=== PATIENT | female | born 1965 | race American Indian/Alaskan Native ===

== ENCOUNTER 2019-03-07 18:07 | Emergency (ER) | payer MEDICAID, OTHER ==
--- NOTE | 2019-03-07 18:53 | EDM.PDOC ---
ED HPI GENERAL MEDICAL PROBLEM - General Chief Complaint: Abdominal Pain Stated Complaint: Upper abdominal pain x one month Time Seen by Provider: 03/07/19 18:43 Source of Information: Reports: Patient, EMS History Limitations: Reports: Other (Pain distraction.) - History of Present Illness INITIAL COMMENTS - FREE TEXT/NARRATIVE: Persistent but intermittent upper abdominal pain for about one month. Pain is LUQ and epigastric in location. Pain is sharp but also burning. Was seen at [facility] and started on ranitidine. It doesn't seem to have helped much. Some nausea, has never vomited. No diarrhea, some constipation. Was recently seen because of return of menstrual period by OB-PATCHER WOOD WELDER at [place] in [place]. Uterine biopsy done but results pending. It was felt that she had a right ovarian cyst but no other PATCHER WOOD WELDER abnormality. She had severe pain today and states she passed out. She was brought be ambulance. Onset: Today Onset Date: 02/10/19 Onset Time: 07:00 Duration: Week(s): (Four), Waxing/Waning Location: Reports: Abdomen Quality: Reports: Burning, Stabbing Severity: Moderate Improves with: Reports: None Worsens with: Reports: Movement Associated Symptoms: Reports: Nausea/Vomiting - Related Data Allergies Allergy/AdvReac Type Severity Reaction Status Date / Time metformin Allergy Cannot Verified 03/07/19 18:57 Remember pregabalin [From Lyrica] Allergy Swelling Verified 03/07/19 18:57 Home Meds: Home Meds Insulin Aspart [NovoLOG] 20 unit SQ WITHMEALSANDBED 03/07/19 [History] Insulin Detemir [Levemir] 25 unit SUBCUT BID 03/07/19 [History] Levothyroxine [Synthroid] 50 mcg PO ACBREAKFAST 03/07/19 [History] ED ROS GENERAL - Review of Systems Review Of Systems: See Below Constitutional: Reports: No Symptoms HEENT: Reports: Other (Dry mouth) Respiratory: Reports: No Symptoms Cardiovascular: Reports: No Symptoms Endocrine: Reports: No Symptoms GI/Abdominal: Reports: Abdominal Pain Psychiatric: Reports: Anxiety ED EXAM, GI/ABD - Physical Exam Exam: See Below Exam Limited By: Other (Pain) General Appearance: Moderate Distress Respiratory/Chest: No Respiratory Distress GI/Abdominal Exam: Normal Bowel Sounds, Soft, No Mass, Tender (LUQ and epigastric tenderness.) Extremities: Normal Inspection Skin Exam: Warm Course - Vital Signs Last Recorded V/S: Last Vital Signs Temp 35.8 C 03/07/19 18:59 Pulse 68 03/07/19 22:31 Resp 18 03/07/19 22:31 BP 146/59 H 03/07/19 22:31 Pulse Ox 97 03/07/19 22:31 - Orders/Labs/Meds Orders: Active Orders 24 hr Category Date Time Status Saline Lock Insert [OM.PC] Routine Oth 03/07/19 18:57 Ordered Labs: Laboratory Tests 03/07/19 03/07/19 03/07/19 Range/Units 19:00 19:00 19:00 WBC 9.2 (4.5-11.0) K/uL RBC 4.62 (3.30-5.50) M/uL Hgb 14.0 (12.0-15.0) g/dL Hct 41.9 (36.0-48.0) % MCV 91 (80-98) fL MCH 30 (27-31) pg MCHC 33 (32-36) % Plt Count 254 (150-400) K/uL Neut % (Auto) 74 H (36-66) % Lymph % (Auto) 20 L (24-44) % Hamblen % (Auto) 5 (2-6) % Eos % (Auto) 1 L (2-4) % Baso % (Auto) 0 (0-1) % Sodium 140 (140-148) mmol/L Potassium 3.7 (3.6-5.2) mmol/L Chloride 104 (100-108) mmol/L Carbon Dioxide 26 (21-32) mmol/L Anion Gap 9.7 (5.0-14.0) mmol/L BUN 10 (7-18) mg/dL Creatinine 0.7 (0.6-1.0) mg/dL Est Cr Clr Drug Dosing 78.41 mL/min Estimated GFR (MDRD) > 60 (>60) Glucose 207 H (74-106) mg/dL Calcium 8.9 (8.5-10.1) mg/dL Total Bilirubin 0.7 (0.2-1.0) mg/dL AST 61 H (15-37) U/L ALT 84 H (12-78) U/L Alkaline Phosphatase 71 (46-116) U/L C-Reactive Protein (0.0-0.3) mg/dL Total Protein 7.5 (6.4-8.2) g/dL Albumin 3.3 L (3.4-5.0) g/dL Globulin 4.2 H (2.3-3.5) g/dL Albumin/Globulin Ratio 0.8 L (1.2-2.2) Lipase 137 (73-393) U/L 03/07/19 Range/Units 19:00 WBC (4.5-11.0) K/uL RBC (3.30-5.50) M/uL Hgb (12.0-15.0) g/dL Hct (36.0-48.0) % MCV (80-98) fL MCH (27-31) pg MCHC (32-36) % Plt Count (150-400) K/uL Neut % (Auto) (36-66) % Lymph % (Auto) (24-44) % Hamblen % (Auto) (2-6) % Eos % (Auto) (2-4) % Baso % (Auto) (0-1) % Sodium (140-148) mmol/L Potassium (3.6-5.2) mmol/L Chloride (100-108) mmol/L Carbon Dioxide (21-32) mmol/L Anion Gap (5.0-14.0) mmol/L BUN (7-18) mg/dL Creatinine (0.6-1.0) mg/dL Est Cr Clr Drug Dosing mL/min Estimated GFR (MDRD) (>60) Glucose (74-106) mg/dL Calcium (8.5-10.1) mg/dL Total Bilirubin (0.2-1.0) mg/dL AST (15-37) U/L ALT (12-78) U/L Alkaline Phosphatase (46-116) U/L C-Reactive Protein 0.63 H (0.0-0.3) mg/dL Total Protein (6.4-8.2) g/dL Albumin (3.4-5.0) g/dL Globulin (2.3-3.5) g/dL Albumin/Globulin Ratio (1.2-2.2) Lipase (73-393) U/L Meds: Medications Discontinued Medications Generic Name Dose Route Start Last Admin Trade Name Freq PRN Reason Stop Dose Admin Al Hydroxide/Mg Hydroxide 90 ml 03/07/19 22:28 03/07/19 22:38 Mag-Al Plus PO 03/07/19 22:29 90 ml ONETIME ONE Administration Al Hydroxide/Mg Hydroxide 15 0 ml 03/07/19 21:25 03/07/19 21:43 ml/ Lidocaine HCl 15 ml PO 03/07/19 21:26 15 ml ONETIME ONE Administration Hydromorphone HCl 1 mg 03/07/19 21:24 03/07/19 21:43 Dilaudid IVPUSH 03/07/19 21:25 1 mg ONETIME ONE Administration Lactated Ringer's 1,000 mls @ 150 mls/hr 03/07/19 19:00 03/07/19 19:16 Ringers, Lactated IV 150 mls/hr ASDIRECTED VITALY Administration Sodium Chloride 80 mls @ 3.5 mls/sec 03/07/19 19:04 03/07/19 20:13 Normal Saline IV 03/07/19 19:05 3.5 mls/sec ONETIME ONE Administration Iopamidol 150 ml 03/07/19 19:15 03/07/19 20:13 Isovue-300 (61%) IV 03/07/19 19:16 147 ml ONETIME ONE Administration Ketorolac Tromethamine 30 mg 03/07/19 18:59 03/07/19 19:17 Toradol IVPUSH 03/07/19 19:00 30 mg ONETIME ONE Administration Ondansetron HCl 4 mg 03/07/19 18:59 03/07/19 19:17 Zofran IVPUSH 03/07/19 19:00 4 mg ONETIME ONE Administration Sodium Chloride 10 ml 03/07/19 18:57 03/07/19 19:21 Saline Flush FLUSH 10 ml ASDIRECTED PRN Administration Keep Vein Open Sodium Chloride 10 ml 03/07/19 19:04 03/07/19 20:13 Saline Flush FLUSH 03/07/19 19:05 10 ml ONETIME ONE Administration - Re-Assessments/Exams Free Text/Narrative Re-Assessment/Exam: 03/07/19 21:15 Patient somewhat more comfortable after Toradol. She is thirsty. Labs looking good so far. Will await CT results. 03/07/19 21:26 Will give GI cocktail and hydromorphone 1 mg IV. Nursing staff reports that there is a family member who committed suicide almost exactly one year ago and that has been stressful for her. 03/07/19 23:38 Returned to review all findings. Told her that no acute changes were seen in imaging or labs. Discussed in detail that her stressors could be the reason she' s had the abdominal pain. To have symptoms for one month but not have abnormal testing suggests stress-related cause. She is taking ranitidine once a day but doesn't know the dose. I recommend using it twice a day and getting liquid antacid to help with flares of pain. She should schedule a clinic recheck appointment. If not improved she may need UGI endoscopy. She seems somewhat reassured. Departure - Departure Time of Disposition: 22:29 Disposition: Home, Self-Care 01 Condition: Fair Clinical Impression: Abdominal pain - Discharge Information *PRESCRIPTION DRUG MONITORING PROGRAM REVIEWED*: Not Applicable *COPY OF PRESCRIPTION DRUG MONITORING REPORT IN PATIENT MARITZA: Not Applicable Instructions: Abdominal Pain, Adult Referrals: PCP,None [Primary Care Provider] - Forms: ED Department Discharge Additional Instructions: Check your ranitidine tablets at home. I recommend taking 150 mg twice a day. Use Maalox liquid antacid, at least 2 tablespoons at a time. Schedule recheck appointment with [facility]. If your stomach pain doesn't improve with the changes recommended, you may need to have a stomach scope exam. Care Plan Goals: Se discharge instructions. - Problem List & Annotations (1) Gastritis SNOMED Code(s): 9752352 Code(s): K29.70 - GASTRITIS, UNSPECIFIED, WITHOUT BLEEDING Status: Acute Priority: High Qualifiers: Gastritis type: other gastritis - Problem List Review Problem List Initiated/Reviewed/Updated: Yes - My Orders Last 24 Hours: My Active Orders 03/07/19 18:57 Saline Lock Insert [OM.PC] Routine - Assessment/Plan Last 24 Hours: My Active Orders 03/07/19 18:57 Saline Lock Insert [OM.PC] Routine Assessment:: Gastritis. Significant life stress. Plan: See discharge instructions.
[2019-03-07] MEDS ORDERED: Sodium Chloride 0.9% 10 ML Syringe FLUSH PRN (18:57)
[2019-03-07] MEDS ORDERED: Ketorolac 30 MG/ML SDV IVPUSH ONE (18:59)
[2019-03-07] MEDS ORDERED: Ondansetron 4 MG/2 ML SDV IVPUSH ONE (18:59)
[2019-03-07] MEDS ORDERED: Lactated Ringers 1,000 ML IV SCH (19:00)
[2019-03-07] MEDS ORDERED: Sodium Chloride 0.9% 80 ML IV ONE (19:04)
[2019-03-07] MEDS ORDERED: Iopamidol 612 MG/ML 150 ML Bottle IV ONE (19:15)
[2019-03-07] MEDS: Sodium Chloride 0.9% 10 ML Syringe FLUSH ONE ×2 (19:21→20:13)
[2019-03-07] MEDS ORDERED: HYDROmorphone 1 MG/ML Syringe IVPUSH ONE (21:24)
[2019-03-07] MEDS ORDERED: Alum Hydrox/Mag Hydrox/Simeth 15 ML, Lidocaine 2% 15 ML PO ONE ×2 (21:25)
--- NOTE | 2019-03-07 21:25 | CRLCT ---
INDICATION: Upper abdominal pain. TECHNIQUE: CT scan of the abdomen and pelvis with 100 cc of Isovue-300 given intravenously. FINDINGS: The lung bases are unremarkable. No focal abnormalities identified in the visualized portions of the liver, spleen, pancreas, and adrenal glands. A few small cysts in the kidneys. The kidneys are otherwise unremarkable. No hydronephrosis. No obstructing uroliths. The GI tract is incompletely distended but shows no gross abnormalities. The stomach and GE junction are not well assessed. Normal appendix. No retroperitoneal, pelvic sidewall, or mesenteric adenopathy. Atherosclerotic vascular calcifications. IMPRESSION: 1. No acute abnormalities of the abdomen or pelvis identified. Dictated by Cuco Raymond MD @ 03/07/2019 9:24:25 PM Dictated by: Cuco Raymond MD @ 03/07/2019 21:24:45 (Electronically Signed)
[2019-03-07] MEDS ORDERED: Aluminum Hydroxide/Magnesium Hydroxide/Simethicone Susp 30 ML Cup PO ONE (22:28)
== END 2019-03-07 22:47 | disposition home or self-care (01) ==
LOC: JP.ED 18:07
DX: K29.70 Gastritis, unspecified, without bleeding (principal); Z88.8 Allergy status to other drugs, medicaments and biological substances; Z79.4 Long term (current) use of insulin
CPT/HCPCS: 36415; 74177; 80053; 83690; 85025; 86140; 96361; 96374; 96375; 99284; A9270; J1170; J1885; J2405; J7030; J7120

== ENCOUNTER 2021-05-16 12:22 | Emergency (ER) | payer MEDICAID ==
[2021-05-16] MEDS ORDERED: Penicillin G Benzathine/Procaine 600-600 1.2 Millunits/2 ML Syringe IM ONE (14:10)
--- NOTE | 2021-05-16 14:17 | EDM.PDOC ---
ED HPI GENERAL MEDICAL PROBLEM - General Chief Complaint: General Stated Complaint: MEDICAL VIA [facility] Time Seen by Provider: 05/16/21 13:20 Source of Information: Reports: Patient, EMS History Limitations: Reports: No Limitations - History of Present Illness INITIAL COMMENTS - FREE TEXT/NARRATIVE: 56-year-old female brought in by ambulance with significant sore throat, myalgias, weakness and headache. It started with a sore throat 3 days ago. She has been spiking fevers off-and-on, no shortness of breath or significant cough. The small amount of cough she does have hurts her throat. Onset: Gradual Duration: Day(s): (3 days) Location: Reports: Other (Mostly throat pain, also headache and generalized myalgias) - Related Data Allergies Allergy/AdvReac Type Severity Reaction Status Date / Time metformin Allergy Cannot Verified 05/16/21 13:05 Remember pregabalin [From Lyrica] Allergy Swelling Verified 05/16/21 13:05 Home Meds: Home Meds Insulin Aspart [NovoLOG] 20 unit SQ WITHMEALSANDBED 03/07/19 [History] Insulin Detemir [Levemir] 25 unit SUBCUT BID 03/07/19 [History] Levothyroxine [Synthroid] 50 mcg PO ACBREAKFAST 03/07/19 [History] Past Medical History HEENT History: Reports: Impaired Vision Cardiovascular History: Reports: Heart Murmur Gastrointestinal History: Reports: Colon Polyp Genitourinary History: Reports: UTI, Recurrent EXCEL ANALYST History: Reports: Dysfunctional Uterine Bleeding, , Other (See Below) Other EXCEL ANALYST History: cyst on left ovarie Musculoskeletal History: Reports: Arthritis, Fibromyalgia Neurological History: Reports: Migraines Psychiatric History: Reports: Anxiety, Depression, Panic Attack, PTSD, Suicidal Ideation Endocrine/Metabolic History: Reports: Diabetes, Type II, Hypothyroidism, Obesity/BMI 30+ Hematologic History: Reports: Anemia - Infectious Disease History Infectious Disease History: Reports: Chicken Pox, Shingles - Past Surgical History Head Surgeries/Procedures: Reports: None HEENT Surgical History: Reports: None Cardiovascular Surgical History: Reports: None GI Surgical History: Reports: Colonoscopy, Polypectomy Female Surgical History: Reports: None Endocrine Surgical History: Reports: None Neurological Surgical History: Reports: None Musculoskeletal Surgical History: Reports: None Dermatological Surgical History: Reports: None Social & Family History - Tobacco Use Tobacco Use Status *Q: Current Some Day Tobacco User Years of Tobacco use: 40 Packs/Tins Daily: 0.1 Used Tobacco, but Quit: No Second Hand Smoke Exposure: No - Caffeine Use Caffeine Use: Reports: Coffee - Recreational Drug Use Recreational Drug Use: No ED ROS GENERAL - Review of Systems Review Of Systems: See Below Constitutional: Reports: Fever, Chills, Malaise, Decreased Appetite HEENT: Reports: Throat Pain Respiratory: Reports: Cough (Cough is minimal, dry). Denies: Shortness of Breath Cardiovascular: Denies: Chest Pain GI/Abdominal: Reports: Nausea. Denies: Abdominal Pain, Vomiting Musculoskeletal: Reports: Muscle Pain (Generalized muscle aches everywhere) Skin: Denies: Rash Neurological: Reports: Headache Psychiatric: Reports: No Symptoms ED EXAM, GENERAL - Physical Exam Exam: See Below Exam Limited By: No Limitations General Appearance: Alert, No Apparent Distress (Looks very uncomfortable but not distressed) Eye Exam: Bilateral Eye: Normal Inspection (Normal hydration, cried tears with the strep test) Ears: Normal TMs Throat/Mouth: Other (Mucosal hydration is excellent, tonsils however are erythematous and swollen, not shifted) Head: Atraumatic Neck: Lymphadenopathy (R) (Cervical lymphadenopathy is very tender), Lymphadenopathy (L) Cardiovascular: Regular Rate, Rhythm. No: Tachycardia GI/Abdominal: Soft, Non-Tender Neurological: Alert, Oriented Psychiatric: Depressed Mood, Flat Affect Skin Exam: Warm, Dry Course - Vital Signs Last Recorded V/S: Last Vital Signs Temp 98.1 F 05/16/21 13:06 Pulse 88 05/16/21 14:36 Resp 18 05/16/21 13:06 BP 157/77 H 05/16/21 14:36 Pulse Ox 96 05/16/21 14:36 - Orders/Labs/Meds Meds: Medications Discontinued Medications Generic Name Dose Route Start Last Admin Trade Name Freq PRN Reason Stop Dose Admin Penicillin G Procaine/Benzathine 1.2 millunits 05/16/21 14:45 05/16/21 14:42 Penicillin G Benzathine/Procaine 900-300 1.2 Millunits/2 Ml Syringe IM 05/16/21 14:46 1.2 millunits ONETIME ONE Administration - Re-Assessments/Exams Free Text/Narrative Re-Assessment/Exam: 05/16/21 17:33 Rapid strep was obtained which was positive. Patient was given a Bicillin injection of penicillin, and will start on oral penicillin tomorrow three times daily for at least 7 days. She will stay hydrated with fluids and take ibuprofen for discomfort. A note was given for 2 to 3 days off work. She will return if worsening despite treatment. Departure - Departure Time of Disposition: 14:39 Disposition: Home, Self-Care 01 Clinical Impression: Acute streptococcal pharyngitis - Discharge Information Instructions: Strep Throat, Adult, [id number] Referrals: PCP,None [Primary Care Provider] - Forms: ED Department Discharge Care Plan Goals: Start penicillin 3 times a day tomorrow, rest tonight and get plenty of fluids and use Tylenol and ibuprofen on a regular basis for pain control. If not improving satisfactorily over the next several days, recheck. Also consider recheck if vomiting medication. Sepsis Event Note (ED) - Evaluation Sepsis Screening Result: No Definite Risk - Focused Exam Vital Signs: Vital Signs Temp Pulse Resp BP Pulse Ox 05/16/21 14:36 88 157/77 H 96 05/16/21 14:26 140/62 05/16/21 13:56 84 160/62 H 95 05/16/21 13:26 87 162/80 H 95 05/16/21 13:06 98.1 F 88 18 152/75 H 95 05/16/21 13:01 98.1 F 88 152/75 H 95
[2021-05-16] MEDS ORDERED: Penicillin G Benzathine/Procaine 900-300 1.2 Millunits/2 ML Syringe IM ONE (14:45)
== END 2021-05-16 14:49 | disposition home or self-care (01) ==
LOC: JP.ED 12:22
DX: J02.0 Streptococcal pharyngitis (principal); E11.9 Type 2 diabetes mellitus without complications; E03.9 Hypothyroidism, unspecified; E66.9 Obesity, unspecified; Z68.45 Body mass index [BMI] 70 or greater, adult; Z72.0 Tobacco use; Z88.8 Allergy status to other drugs, medicaments and biological substances; Z79.4 Long term (current) use of insulin
CPT/HCPCS: 87880; 96372; 99284; J0558

== ENCOUNTER 2021-08-06 01:31 | Emergency (ER) | payer MEDICAID ==
--- NOTE | 2021-08-06 02:16 | EDM.PDOC ---
ED HPI GENERAL MEDICAL PROBLEM - General Chief Complaint: Abdominal Pain Stated Complaint: COVID POSITIVE / ABD PAIN Time Seen by Provider: 08/06/21 01:33 Source of Information: Reports: Patient, EMS History Limitations: Reports: No Limitations - History of Present Illness INITIAL COMMENTS - FREE TEXT/NARRATIVE: Tessa is a 56-year-old female brought in by [facility] for evaluation of abdominal pain. Patient rates her pain at a 4 out of 10. She has not been able to have a bowel movement for 2 days. The patient tested positive for COVID-19 5 days ago on Sunday, August 01. She is diabetic and was not vaccinated. She has had a fever as high as 103 F today. This was this evening but she last took a dose of NyQuil at 1800 hrs. and her fever was at 0100. Patient has lost her sense of taste and smell and is really had no appetite. She has been sporadically drinking fluids. She did drink a juice earlier today which is why her sugars are now 320. She states that her blood glucose usually runs around 200. Addition to diabetes, she also has significant obesity. She reports having fever, chills, headache and body aches, nausea but no vomiting and constipation with her last bowel movement being 2 days ago. Lower Abdomen Pain Score (Numeric/FACES): 4 - Related Data Allergies Allergy/AdvReac Type Severity Reaction Status Date / Time metformin Allergy Cannot Verified 08/06/21 01:36 Remember pregabalin [From Lyrica] Allergy Swelling Verified 08/06/21 01:36 Home Meds: Home Meds Insulin Aspart [NovoLOG] 20 unit SQ WITHMEALSANDBED 03/07/19 [History] Insulin Detemir [Levemir] 25 unit SUBCUT BID 03/07/19 [History] Levothyroxine [Synthroid] 50 mcg PO ACBREAKFAST 03/07/19 [History] Past Medical History HEENT History: Reports: Impaired Vision Cardiovascular History: Reports: Heart Murmur Gastrointestinal History: Reports: Colon Polyp Genitourinary History: Reports: UTI, Recurrent [employer] History: Reports: Dysfunctional Uterine Bleeding, , Other (See Below) Other [employer] History: cyst on left ovarie Musculoskeletal History: Reports: Arthritis, Fibromyalgia Neurological History: Reports: Migraines Psychiatric History: Reports: Anxiety, Depression, Panic Attack, PTSD, Suicidal Ideation Endocrine/Metabolic History: Reports: Diabetes, Type II, Hypothyroidism, Obesity/BMI 30+ Hematologic History: Reports: Anemia - Infectious Disease History Infectious Disease History: Reports: Chicken Pox, Shingles - Past Surgical History Head Surgeries/Procedures: Reports: None HEENT Surgical History: Reports: None Cardiovascular Surgical History: Reports: None GI Surgical History: Reports: Colonoscopy, Polypectomy Female Surgical History: Reports: None Endocrine Surgical History: Reports: None Neurological Surgical History: Reports: None Musculoskeletal Surgical History: Reports: None Dermatological Surgical History: Reports: None Social & Family History - Tobacco Use Tobacco Use Status *Q: Light Tobacco User Years of Tobacco use: 0 Packs/Tins Daily: 0.2 - Caffeine Use Caffeine Use: Reports: Coffee ED ROS GENERAL - Review of Systems Review Of Systems: See Below Constitutional: Reports: Fever, Chills, Malaise, Weakness, Fatigue, Decreased Appetite HEENT: Reports: Throat Pain, Other (Loss of taste and smell) Respiratory: Reports: Shortness of Breath, Cough Cardiovascular: Reports: No Symptoms Endocrine: Reports: Fatigue, High Glucose GI/Abdominal: Reports: Abdominal Pain (Suprapubic abdominal pain), Constipation, Decreased Appetite, Nausea : Reports: No Symptoms Musculoskeletal: Reports: Joint Pain (Generalized joint pain), Muscle Pain (Generalized muscle aches) Skin: Reports: No Symptoms Neurological: Reports: Headache Psychiatric: Reports: Anxiety Hematologic/Lymphatic: Reports: No Symptoms Immunologic: Reports: No Symptoms ED EXAM, GI/ABD - Physical Exam Exam: See Below Exam Limited By: No Limitations General Appearance: Alert, Anxious, Moderate Distress Eyes: Bilateral: EOMI Throat/Mouth: Normal Voice, No Airway Compromise, Other (Dry mucous membranes) Head: Normocephalic Neck: Normal Inspection, Supple. No: Lymphadenopathy (R), Lymphadenopathy (L) Respiratory/Chest: Decreased Breath Sounds (Diminished breath sounds in the bases), Rhonchi (Scattered rhonchi bilaterally) Cardiovascular: Normal Peripheral Pulses, Regular Rate, Rhythm, No Murmur GI/Abdominal Exam: Soft, Tender (Bilateral lower abdomen), Abnormal Bowel Sounds (Markedly diminished bowel sounds). No: Guarding, Rebound Back Exam: Normal Inspection, Full Range of Motion Extremities: Normal Range of Motion Neurological: Alert, Oriented, Normal Cognition, No Motor/Sensory Deficits Psychiatric: Anxious Course - Vital Signs Last Recorded V/S: Last Vital Signs Temp 36.7 C 09/25/21 01:32 Pulse 103 H 08/06/21 01:32 Resp 20 08/06/21 01:32 BP 130/53 L 08/06/21 01:32 Pulse Ox 96 08/06/21 01:32 - Orders/Labs/Meds Orders: Active Orders 24 hr Category Date Time Status Abdomen 1V Flat [CR] Stat Exams 08/06/21 01:34 Ordered Chest 1V Frontal [CR] Stat Exams 08/06/21 01:34 Ordered C-REACTIVE PROTEIN [CHEM] Stat Lab 08/06/21 01:55 Received COMPREHENSIVE METABOLIC PN,CMP [CHEM] Stat Lab 08/06/21 01:55 Received KETONES,BLOOD [CHEM] Stat Lab 08/06/21 01:55 Received UA W/MICROSCOPIC [URIN] Stat Lab 08/06/21 01:37 Received Labs: Laboratory Tests 08/06/21 Range/Units 01:55 WBC 13.2 H (4.5-11.0) K/uL RBC 4.98 (3.30-5.50) M/uL Hgb 14.8 (12.0-15.0) g/dL Hct 43.4 (36.0-48.0) % MCV 87 (80-98) fL MCH 30 (27-31) pg MCHC 34 (32-36) % Plt Count 219 (150-400) K/uL Neut % (Auto) 77.4 H (36-66) % Lymph % (Auto) 17.8 L (24-44) % Catron % (Auto) 4.6 (2-6) % Eos % (Auto) 0.0 L (2-4) % Baso % (Auto) 0.2 (0-1) % - Re-Assessments/Exams Free Text/Narrative Re-Assessment/Exam: 08/06/21 02:46 the patient's chest x-ray which shows some mild sparse infiltrates in both bases consistent with mild Covid lung. Her abdominal x-ray does not really demonstrate a very significant amount of stool throughout the colon. She does have a fair amount of gas and some distention of the small bowel without evidence for obstruction. Labs were obtained showing a leukocytosis of 13.2 with 77% neutrophils. Her hemoglobin is 14.8 with a hematocrit of 43.4 and a platelet count of 219,000. Her comprehensive metabolic panel shows a sodium 131, potassium of 3.9, chloride of 96, bicarbonate of 26, BUN of 16 with a creatinine 1.0 and a glucose of 309. Her urinalysis is very s ignificant for urinary tract infection with positive nitrites and leukocyte esterase and packed WBCs per high field view with 0-5 red blood cells. C- reactive protein is elevated at 12.5. Again the patient is Covid positive x5 days. We initiated antibiotics with Rocephin 2 g IV and I will put her on oral cephalexin 500 mg twice daily for 10 days. The patient's SPO2 is maintained at 96% on room air and although she has Covid and is febrile, it does not appear that she requires hospitalization for her Covid at this time. Given that, I will likely discharge her home for oral antibiotics. A urine culture has been ordered and is pending. She should follow-up with her primary care provider in 7 days to ensure that she is improved. Indications return to the ED were discussed. Departure - Departure Time of Disposition: 02:50 Disposition: Home, Self-Care 01 Clinical Impression: COVID-19 Constipation Qualifiers: Constipation type: slow transit constipation Qualified Code(s): K59.01 - Slow transit constipation Urinary tract infection Qualifiers: Urinary tract infection type: acute cystitis Hematuria presence: without hematuria Qualified Code(s): N30.00 - Acute cystitis without hematuria - Discharge Information Instructions: COVID-19: What to Do If You Are Sick- [facility] (01/26/2021), Urinary Tract Infection, Adult Referrals: PCP,Unknown [Primary Care Provider] - Care Plan Goals: Your work-up today shows that your pressure that you are having in the pelvis is likely due to a very significant urinary tract infection involving inflammation of the bladder. The chest and abdominal x-rays showed mild development of Covid lung secondary to your Covid infection and a normal nonobstructive gas pattern throughout your abdomen with only a mild amount of stool throughout the colon. There was no evidence for either significant constipation or obstruction. Your labs however showed a very significant bladder infection with many white blood cells seen in the urine and an elevation of your white blood cell count consistent with a bacterial infection. As you are not requiring oxygen at this time, I do feel comfortable in letting you go home. Continue to take Tylenol or ibuprofen for the fever. We are going to put you on Keflex 500 mg twice daily for 10 days for the bladder infection. We are going a longer course than usual because of the diabetes. Certainly if you become more short of breath and are requiring oxygen we will have to reassess you and likely will admit you to the hospital at that time. Continue to push fluids to prevent dehydration. Sepsis Event Note (ED) - Evaluation Sepsis Screening Result: No Definite Risk - Focused Exam Vital Signs: Vital Signs Temp Pulse Resp BP Pulse Ox 08/06/21 01:32 36.7 C 103 H 20 130/53 L 96 - Problem List & Annotations (1) COVID-19 SNOMED Code(s): 812117361 Code(s): U07.1 - COVID-19 Status: Acute Priority: High Current Visit: Yes (2) Constipation SNOMED Code(s): 52659399 Code(s): K59.00 - CONSTIPATION, UNSPECIFIED Status: Acute Priority: High Current Visit: Yes Qualifiers: Constipation type: slow transit constipation Qualified Code(s): K59.01 - Slow transit constipation (3) Urinary tract infection SNOMED Code(s): 28644360 Code(s): N39.0 - URINARY TRACT INFECTION, SITE NOT SPECIFIED Status: Acute Priority: High Current Visit: Yes Qualifiers: Urinary tract infection type: acute cystitis Hematuria presence: without hematuria Qualified Code(s): N30.00 - Acute cystitis without hematuria - Problem List Review Problem List Initiated/Reviewed/Updated: Yes - My Orders Last 24 Hours: My Active Orders 08/06/21 01:34 Abdomen 1V Flat [CR] Stat Chest 1V Frontal [CR] Stat 08/06/21 01:37 UA W/MICROSCOPIC [URIN] Stat 08/06/21 01:55 C-REACTIVE PROTEIN [CHEM] Stat COMPREHENSIVE METABOLIC PN,CMP [CHEM] Stat KETONES,BLOOD [CHEM] Stat - Assessment/Plan Last 24 Hours: My Active Orders 08/06/21 01:34 Abdomen 1V Flat [CR] Stat Chest 1V Frontal [CR] Stat 08/06/21 01:37 UA W/MICROSCOPIC [URIN] Stat 08/06/21 01:55 C-REACTIVE PROTEIN [CHEM] Stat COMPREHENSIVE METABOLIC PN,CMP [CHEM] Stat KETONES,BLOOD [CHEM] Stat
[2021-08-06] MEDS ORDERED: cefTRIAXone 2 GM in Sodium Chloride 0.9% 50 ML IV ONE (02:17)
--- NOTE | 2021-08-08 09:34 | CR ---
Abdomen 1V Flat CLINICAL HISTORY: Abdominal pain, constipation FINDINGS: There is a air-filled loop of bowel in the midabdomen which is likely transverse colon. Small intestinal configuration is nonspecific. There is some gas and feces throughout the colon IMPRESSION: Nonspecific intestinal gas pattern
--- NOTE | 2021-08-08 09:35 | CR ---
CHEST: Portable 08/06/2021 at 2:23 AM CLINICAL HISTORY:Covid COMPARISON:None FINDINGS: Heart and pulmonary vascular normal. There are atherosclerotic changes in the aorta.. There is some minimal patchy density in both lung bases. This may represent pneumonia or pneumonitis. Impression: Patchy bibasal densities left greater than right. This is suggestive of pneumonitis
== END 2021-08-06 03:49 | disposition home or self-care (01) ==
LOC: JP.ED 01:31
DX: U07.1 COVID-19 (principal); N30.00 Acute cystitis without hematuria; K59.01 Slow transit constipation; E11.9 Type 2 diabetes mellitus without complications; E03.9 Hypothyroidism, unspecified; E66.9 Obesity, unspecified; Z68.36 Body mass index [BMI] 36.0-36.9, adult; Z72.0 Tobacco use; Z88.8 Allergy status to other drugs, medicaments and biological substances; Z79.4 Long term (current) use of insulin; Z79.899 Other long term (current) drug therapy
CPT/HCPCS: 36415; 71045; 74018; 80053; 81001; 82009; 85025; 86140; 87086; 87088; 87186; 96365; 99284; J0696